=== PATIENT | female | born 1990 | race Caucasian/White ===

== ENCOUNTER 2016-11-05 21:59 | Emergency (ER) | payer OTHER ==
[2016-11-06 00:16] LABS: BASOPHIL 0.2 % (0-2); EOSINOPHIL 0.9 % (0-5); HCT 37.2 % (37.0-47.0); HGB 13.3 g/dl (12.5-16.0); LYMPHOCYTE 15.3 % (15-48); MCH 31.4 pg (25.0-31.0); MCHC 35.8 g/dL (32.0-36.0); MCV 87.9 fL (78.0-100.0); MONOCYTE 6.1 % (0-12); MPV 9.9 fL (6.0-9.5); NEUTROPHIL 77.5 % (41-80); PLT 283 K/uL (150-400); RBC 4.23 M/uL (4.20-5.40); RDW 12.2 % (11.5-14.0); WBC 18.4 K/uL (4.0-10.5)
[2016-11-06 00:20] LABS: BILIRUBIN NEGATIVE (NEGATIVE); BLOOD NEGATIVE Ery/uL (NEGATIVE); CLARITY CLEAR (CLEAR); COLOR YELLOW (YELLOW); GLUCOSE (U) NORMAL (NORMAL); KETONE (U) 2+ (MODERATE) mg/dL (NEGATIVE); LEUKOCYTES 1+ Leu/uL (NEGATIVE); NITRITE NEGATIVE (NEGATIVE); PROTEIN NEGATIVE (NEGATIVE); SPECIFIC GRAVITY 1.025 (1.001-1.030); pH 6.5 (5.0-9.0)
[2016-11-06 00:26] LABS: BACTERIA 2+; MUCOUS MODERATE
[2016-11-06 00:39] LABS: ALBUMIN 3.8 g/dL (3.5-5.0); BILIRUBIN - TOTAL 0.4 mg/dL (0.1-1.0); CREATININE 0.4 mg/dL (0.5-1.0); GLOBULIN (CALCULATION) 3.1 g/dL (2.2-4.2); POTASSIUM 3.7 mmol/L (3.5-5.1); TOTAL PROTEIN 6.9 g/dL (6.4-8.3)
== END 2016-11-06 02:15 | disposition home or self-care (01) ==
LOC: FER 21:59
PROVIDERS: Emergency Medicine
DX: O23.42 Unspecified infection of urinary tract in pregnancy, second trimester (principal); Z3A.15 15 weeks gestation of pregnancy
CPT/HCPCS: 36415; 80053; 81001; 83690; 85025; 87077; 87088; 87186

== ENCOUNTER 2021-04-20 02:26 | Emergency (ER) | payer OTHER ==
[2021-04-20 03:21] LABS: BASOPHIL 0.5 % (0-2); HCT 46.3 % (37.0-47.0); LYMPHOCYTE 18.1 % (15-48); MCH 28.8 pg (25.0-31.0); MCHC 32.4 g/dL (32.0-36.0); MONOCYTE 5.6 % (0-12); MPV 10.5 fL (6.0-9.5); NEUTROPHIL 74.5 % (41-80); NRBC 0; PLT 377 K/uL (150-400); RDW 12.4 % (11.5-14.0); WBC 18.5 K/uL (4.0-10.5)
[2021-04-20 03:39] LABS: LACTIC ACID 1.3 mmol/L (0.4-1.9)
[2021-04-20 03:40] LABS: ALBUMIN 3.2 g/dL (3.4-5.0); ALKALINE PHOSHATASE 483 U/L (46-116); ALT 312 U/L (14-59); AST 188 U/L (15-37); BUN 12 mg/dL (7-18); BUN/CREAT RATIO (CALC) 15.6 RATIO; CHLORIDE 107 mmol/L (98-107); CO2 (BICARBONATE) 25 mmol/L (21-32); CREATININE 0.77 mg/dL (0.51-0.95); GLUCOSE 135 mg/dL (74-106); LIPASE >2250 U/L (73-393); POTASSIUM 3.2 mmol/L (3.5-5.1); TOTAL PROTEIN 7.2 g/dL (6.4-8.2)
== END 2021-04-20 13:31 | disposition other institution (70) ==
LOC: FER 02:26
PROVIDERS: Emergency Medicine Emergency Medical Services
DX: O99.63 Diseases of the digestive system complicating the puerperium (principal); K85.90 Acute pancreatitis without necrosis or infection, unspecified; Z20.822 Contact with and (suspected) exposure to COVID-19
CPT/HCPCS: 36415; 76705; 80053; 83605; 83690; 84145; 85025; 87040; J1170; J1885; J2270; J2405; J7030; Q9967; U0002

== ENCOUNTER 2021-06-10 22:57 | Emergency (ER) | payer OTHER ==
[2021-06-10 23:52] LABS: BASOPHIL 0.9 % (0-2); EOSINOPHIL 4.9 % (0-5); HCT 34.9 % (37.0-47.0); HGB 11.5 g/dl (12.5-16.0); LYMPHOCYTE 24.2 % (15-48); MCV 84.9 fL (78.0-100.0); MONOCYTE 10.2 % (0-12); MPV 9.6 fL (6.0-9.5); NEUTROPHIL 59.5 % (41-80); NRBC 0; PLT 291 K/uL (150-400); RBC 4.11 M/uL (4.20-5.40); RDW 14.6 % (11.5-14.0); WBC 7.5 K/uL (4.0-10.5)
[2021-06-11 00:10] LABS: BILIRUBIN - TOTAL 0.4 mg/dL (0.2-1.0); BUN/CREAT RATIO (CALC) 15.1 RATIO; CREATININE 0.53 mg/dL (0.51-0.95); GLOBULIN (CALCULATION) 4.8 g/dL; POTASSIUM 3.3 mmol/L (3.5-5.1); TOTAL PROTEIN 7.8 g/dL (6.4-8.2)
[2021-06-11 00:27] LABS: LACTIC ACID 0.5 mmol/L (0.4-1.9)
[2021-06-11 00:28] LABS: BILIRUBIN 1+ mg/dL (NEGATIVE); BLOOD 1+ Ery/uL (NEGATIVE); CLARITY CLEAR (CLEAR); COLOR YELLOW (YELLOW); GLUCOSE (U) NORMAL (NORMAL); LEUKOCYTES 1+ Leu/uL (NEGATIVE); NITRITE NEGATIVE (NEGATIVE); PROTEIN NEGATIVE (NEGATIVE); SPECIFIC GRAVITY 1.025 (1.001-1.030); UROBILINOGEN 0.2 mg/dL (0.2-1.0)
[2021-06-11 00:44] LABS: MUCOUS MODERATE; YEAST PRESENT
[2021-06-11 00:45] LABS: BACTERIA TRACE
== END 2021-06-11 07:25 | disposition other institution (70) ==
LOC: FER 22:57
PROVIDERS: Emergency Medicine
DX: K81.9 Cholecystitis, unspecified (principal); R07.89 Other chest pain; Z20.822 Contact with and (suspected) exposure to COVID-19
CPT/HCPCS: 36415; 71045; 71275; 80053; 81001; 83605; 83690; 84484; 85025; 85379; 87040; 87088; 93005; J2543; J3370; J7030; J7050; Q9967; U0002

== ENCOUNTER → 2021-07-20 | Day surgery (SDC) | payer OTHER ==
[~2021-07-20] VITALS: Ht 165.1 cm; Wt 104.8 kg
[~2021-07-20] MED LIST: AMOXICILLIN500 MG PO; BUPROPION XL300 MG PO; FEOSOL325 MG PO; NIFEDIPINE ER30 MG PO; NORCO 5-325 TA1 EACH PO; ONDANSETRON ODT8 MG PO
[2021-07-20 08:21] LABS: HCG (URINE) SCREEN NEGATIVE (NEGATIVE)
[2021-07-20 08:40] LABS: HCT 37.9 % (37.0-47.0); HGB 12.4 g/dl (12.5-16.0); MCHC 32.7 g/dL (32.0-36.0); MCV 88.6 fL (78.0-100.0); MPV 9.6 fL (6.0-9.5); RBC 4.28 M/uL (4.20-5.40); RDW 14.2 % (11.5-14.0); WBC 7.9 K/uL (4.0-10.5)
[2021-07-20 09:47] LABS: ALBUMIN 3.5 g/dL (3.4-5.0); BILIRUBIN - TOTAL 0.3 mg/dL (0.2-1.0); CREATININE 0.64 mg/dL (0.51-0.95); GLOBULIN (CALCULATION) 4.3 g/dL; POTASSIUM 3.9 mmol/L (3.5-5.1); TOTAL PROTEIN 7.8 g/dL (6.4-8.2)
== END | disposition home or self-care (01) ==
LOC: FAS 07:37
PROVIDERS: Surgery
DX: K80.10 Calculus of gallbladder with chronic cholecystitis without obstruction (principal); K66.0 Peritoneal adhesions (postprocedural) (postinfection); K82.8 Other specified diseases of gallbladder; K85.10 Biliary acute pancreatitis without necrosis or infection; I10 Essential (primary) hypertension
CPT/HCPCS: 36415; 74300; 80053; 84703; 87070; 87075; 87205; 93005; C1758; J0690; J1100; J1170; J2250; J2405; J2704; J2710; J3010; J7120; Q9967

== ENCOUNTER 2021-12-12 17:25 | Emergency (ER) | payer OTHER ==
[2021-12-12 21:08] LABS: BASOPHIL 0.4 % (0-2); EOSINOPHIL 0.2 % (0-5); HCT 40.7 % (37.0-47.0); HGB 13.8 g/dl (12.5-16.0); MCH 29.8 pg (25.0-31.0); MCHC 33.9 g/dL (32.0-36.0); MCV 87.9 fL (78.0-100.0); MONOCYTE 6.6 % (0-12); MPV 9.8 fL (6.0-9.5); NEUTROPHIL 82.4 % (41-80); NRBC 0; PLT 215 K/uL (150-400); RBC 4.63 M/uL (4.20-5.40); RDW 11.9 % (11.5-14.0); WBC 9.4 K/uL (4.0-10.5)
[2021-12-12 21:45] LABS: ALBUMIN 3.7 g/dL (3.4-5.0); BILIRUBIN - TOTAL 0.6 mg/dL (0.2-1.0); BUN/CREAT RATIO (CALC) 17.7 RATIO; CREATININE 0.62 mg/dL (0.51-0.95); GLOBULIN (CALCULATION) 3.6 g/dL; POTASSIUM 3.7 mmol/L (3.5-5.1); TOTAL PROTEIN 7.3 g/dL (6.4-8.2)
== END 2021-12-12 23:20 | disposition home or self-care (01) ==
LOC: FER 17:25
PROVIDERS: Emergency Medicine
DX: R10.11 Right upper quadrant pain (principal); R11.0 Nausea; Z88.5 Allergy status to narcotic agent
CPT/HCPCS: 36415; 80053; 82150; 83690; 85025; J1170; J2405; J7030; Q9967

== ENCOUNTER 2021-12-15 23:28 | Emergency (ER) | payer OTHER ==
[2021-12-16 02:07] LABS: BASOPHIL 0.4 % (0-2); HCT 40.1 % (37.0-47.0); HGB 13.5 g/dl (12.5-16.0); MCH 30.5 pg (25.0-31.0); MCHC 33.7 g/dL (32.0-36.0); MCV 90.5 fL (78.0-100.0); MPV 9.9 fL (6.0-9.5); NEUTROPHIL 75.3 % (41-80); NRBC 0; PLT 237 K/uL (150-400); RBC 4.43 M/uL (4.20-5.40); RDW 11.9 % (11.5-14.0); WBC 11.5 K/uL (4.0-10.5)
[2021-12-16 02:11] LABS: INR 1.05 (0.9-1.2); PROTHROMBIN TIME 13.1 SECONDS (11.8-13.4); PTT 33.2 SECONDS (24.4-34.7)
[2021-12-16 02:22] LABS: BILIRUBIN NEGATIVE (NEGATIVE); BLOOD TRACE-INTACT Ery/uL (NEGATIVE); CLARITY CLEAR (CLEAR); COLOR YELLOW (YELLOW); GLUCOSE (U) NORMAL (NORMAL); LEUKOCYTES 1+ Leu/uL (NEGATIVE); NITRITE NEGATIVE (NEGATIVE); PROTEIN NEGATIVE (NEGATIVE); UROBILINOGEN 0.2 mg/dL (0.2-1.0)
[2021-12-16 02:26] LABS: ALBUMIN 3.8 g/dL (3.4-5.0); BILIRUBIN - TOTAL 0.2 mg/dL (0.2-1.0); CREATININE 0.81 mg/dL (0.51-0.95); GLOBULIN (CALCULATION) 3.6 g/dL; POTASSIUM 4.3 mmol/L (3.5-5.1); TOTAL PROTEIN 7.4 g/dL (6.4-8.2)
[2021-12-16 02:31] LABS: BACTERIA TRACE; URINARY RBC RARE
[2021-12-16] MEDS ORDERED: PROTONIX 40MG T40 MG PO (03:47)
[2021-12-16] MEDS ORDERED: ULTRAM50 MG PO (03:47)
== END 2021-12-16 04:10 | disposition home or self-care (01) ==
LOC: FER 23:28
PROVIDERS: Emergency Medicine
DX: R10.11 Right upper quadrant pain (principal); Z28.310 Unvaccinated for COVID-19
CPT/HCPCS: 36415; 80053; 81001; 83605; 83690; 84145; 85025; 85610; 85730; J1170; J2405; J7030

== ENCOUNTER 2022-03-02 15:10 | Emergency (ER) | payer OTHER ==
[~2022-03-02 15:10] MED LIST changes: +PROTONIX 40MG T40 MG PO; +ULTRAM50 MG PO
[2022-03-02 15:55] LABS: BASOPHIL 0.6 % (0-2); EOSINOPHIL 0.1 % (0-5); HCT 45.6 % (37.0-47.0); HGB 15.7 g/dl (12.5-16.0); LYMPHOCYTE 3.9 % (15-48); MCH 30.3 pg (25.0-31.0); MCHC 34.4 g/dL (32.0-36.0); MCV 87.9 fL (78.0-100.0); MONOCYTE 8.6 % (0-12); MPV 9.7 fL (6.0-9.5); NEUTROPHIL 86.3 % (41-80); NRBC 0; PLT 267 K/uL (150-400); RBC 5.19 M/uL (4.20-5.40); RDW 12.1 % (11.5-14.0); WBC 8.8 K/uL (4.0-10.5)
[2022-03-02 16:06] LABS: ALBUMIN 4.6 g/dL (3.4-5.0); BILIRUBIN - TOTAL 0.3 mg/dL (0.2-1.0); BUN/CREAT RATIO (CALC) 20.6 RATIO; CREATININE 0.63 mg/dL (0.51-0.95); POTASSIUM 4.9 mmol/L (3.5-5.1); TOTAL PROTEIN 8.6 g/dL (6.4-8.2)
[2022-03-02 17:41] LABS: INFLUENZA A NAA NEGATIVE (NEGATIVE)
[2022-03-02 17:44] LABS: CORONAVIRUS 2019 SARS-COV-2 POSITIVE (NEGATIVE)
[2022-03-02 17:48] LABS: BILIRUBIN NEGATIVE (NEGATIVE); BLOOD NEGATIVE Ery/uL (NEGATIVE); CLARITY CLEAR (CLEAR); COLOR YELLOW (YELLOW); GLUCOSE (U) NORMAL (NORMAL); LEUKOCYTES TRACE Leu/uL (NEGATIVE); NITRITE NEGATIVE (NEGATIVE); PROTEIN NEGATIVE (NEGATIVE); SPECIFIC GRAVITY >=1.030 (1.001-1.030); UROBILINOGEN 0.2 mg/dL (0.2-1.0); pH 5.5 (5.0-9.0)
[2022-03-02 17:59] LABS: URINARY WBC RARE
[2022-03-02 18:00] LABS: AMORPHOUS URATES CRYSTALS LARGE; BACTERIA TRACE
== END 2022-03-02 18:44 | disposition home or self-care (01) ==
LOC: FER 15:10
PROVIDERS: Nurse Practitioner Family
DX: U07.1 COVID-19 (principal); Z28.310 Unvaccinated for COVID-19; Z88.5 Allergy status to narcotic agent
CPT/HCPCS: 36415; 80053; 81001; 85025; J1885; J2405; J7030; U0002